=== PATIENT | male | born 2000 | race Caucasian/White ===

== ENCOUNTER 2023-04-06 22:34 | Emergency (ER) | payer BC ==
[~2023-04-06] VITALS: Ht 170.2 cm; Wt 82.0 kg
[2023-04-06 22:41] VITALS: BP 143/90; PULSE 99; RESP 16; TEMP 98.4; O2SAT 98
[2023-04-06] MEDS ORDERED: TETANUS, DIPHTHERIA, PERTUSSIS VAC/PF 0.5ML (>10YR OLD) IM ONE (23:00)
[2023-04-06] MEDS ORDERED: BACITRACIN ZINC OINT UDPKT TOP ONE (23:00)
[2023-04-06] MEDS ORDERED: IBUPROFEN 800MG TABLET PO ONE (23:00)
[2023-04-07] MEDS ORDERED: BO1 TP (00:12)
== END 2023-04-07 01:10 | disposition home or self-care (01) ==
LOC: ER 22:34
DX: S80.211A Abrasion, right knee, initial encounter (principal); W18.39XA Other fall on same level, initial encounter; Y93.89 Activity, other specified; Y92.89 Other specified places as the place of occurrence of the external cause; Y99.8 Other external cause status
CPT/HCPCS: 73562; 90471; 90715; 99283